=== PATIENT | male | born 1970 | race Caucasian/White ===

== ENCOUNTER 2023-01-15 07:14 | Outpatient (CLI) | payer MEDICAID ==
[2023-01-15] MEDS ORDERED: DIATR MEGLU/DIATRIZOATE SODIUM 120 ML BOTTLE ONE (08:44)
[2023-01-15 08:48] LABS: CREATININE 0.9 mg/dL (0.6-1.2)
[2023-01-15] MEDS ORDERED: iohexoL-300 100 ML VIAL ONE (10:41)
--- NOTE | 2023-01-15 11:38 | Ultrasound Report ---
PROCEDURE: Abdomen Complete INDICATIONS: LEFT LOWER QUAD ABD PAIN TECHNIQUE: Real-time scanning was performed of the abdominal and retroperitoneal organs, with image documentatio n. COMPARISON: None. FINDINGS: Liver: Increased liver echogenicity, commonly mild hepatic steatosis. Gallbladder: Gallbladder fold. No cholelithiasis. Biliary ducts: Intrahepatic bile ducts are non-dilated. Extrahepatic bile duct caliber measures 3.5 mm. Normal is 6-7 mm or less in diameter, or 10 mm or less post-cholecystectomy. Pancreas: Visualized portions of the pancreas are sonographically normal. Spleen: Spleen is normal in size and homogeneous in echotexture. Kidneys: Kidneys are normal in size and echotexture. Right kidney measures 10.4 cm long; left kidne y measures 9.9 cm long. No hydronephrosis or nephrolithiasis. No solid masses. No complex renal cys tic lesions which require follow-up. Aorta: Visualized aorta is normal in caliber at less than 3 cm. Iliacs: Proximal common iliac arteries are normal in caliber at less than 2.5 cm. IVC: Intrahepatic inferior vena cava is patent. Miscellaneous: No free abdominal fluid. IMPRESSION: No findings to explain the patient's left lower quadrant abdominal pain. Normal kidney and spleen. Reviewed by: Juan David Portillo on 01/15/2023 11:37 AM PDT Approved by: Juan David Portillo on 01/15/2023 11:37 AM PDT Station ID: [id number]
[2023-01-15] MEDS ORDERED: iohexoL-300 100 ML VIAL IVP ONE (17:00)
[2023-01-15] MEDS ORDERED: DIATRIZOATE MEGLU/DIATRIZO SOD 30 ML BOTTLE PO ONE (17:00)
--- NOTE | 2023-01-15 22:55 | CT Report ---
PROCEDURE: ABDOMEN/PELVIS W INDICATIONS: LEFT LOWER QUAD ABD PAIN CONTRAST: 100ml Omnipaque 300 TECHNIQUE: After the administration of weight appropriate dose of intravenous contrast, 5 mm thick sections acqu ired from the diaphragms to the symphysis. 5 mm thick coronal and sagittal reformats were acquired. For radiation dose reduction, the following was used: automated exposure control, adjustment of mA and/or kV according to patient size. COMPARISON: None FINDINGS: Image quality: Excellent. Lung bases and heart: Minimal pleural thickening of the bilateral lung bases. Respiratory motion spencer fact. Small hiatal hernia. Heart size is normal. Minimal atherosclerotic calcifications of the [place] ry arteries. Liver: Hepatic steatosis. Gallbladder and biliary tree: No radiopaque stones or wall thickening. No biliary dilation. Spleen: No splenomegaly. Pancreas: No pancreatic ductal dilation. Adrenals: No adrenal nodule. Kidneys and ureters: No hydronephrosis. No renal cystic lesion which requires follow up. No solid mas s. Bilateral ureters are normal in course and caliber. No perinephric or periureteral stranding. Bowel and peritoneum: No bowel distension. No pathologic free fluid. Diverticulosis without evidence of diverticulitis. Normal appendix. Lymph nodes: No central or retroperitoneal adenopathy. Vessels: No infrarenal aortic aneurysm. PELVIS Reproductive organs: Mild prostatomegaly. Bladder: No abnormal wall thickening, accounting for underdistension. Pelvic lymph nodes: No pelvic adenopathy by size criteria. Bones: No aggressive osseous abnormality. No acute compression fractures. Other: No significant ventral or inguinal hernia. IMPRESSION: CT abdomen and pelvis without acute abnormalities to explain patient's symptoms. Colonic diverticulosis without acute diverticulitis. Normal appendix. Mild diffuse hepatic steatosis. Mild prostatomegaly. Reviewed by: Khurram Triplett MD on 01/15/2023 10:53 PM PDT Approved by: Khurram Triplett MD on 01/15/2023 10:53 PM PDT Station ID: [id number]
== END 2023-01-15 07:15 | disposition home or self-care (01) ==
LOC: DI 07:14
PROVIDERS: ATTEND Internal Medicine
DX: R10.32 Left lower quadrant pain (principal); Z87.19 Personal history of other diseases of the digestive system; K57.30 Diverticulosis of large intestine without perforation or abscess without bleeding; K76.0 Fatty (change of) liver, not elsewhere classified; N40.0 Benign prostatic hyperplasia without lower urinary tract symptoms
CPT/HCPCS: 36415; 74177; 76700; 82565; Q9963; Q9967

== ENCOUNTER 2023-07-04 11:27 | Outpatient (CLI) | payer MEDICAID ==
[2023-07-04 16:51] LABS: ALBUMIN 4.5 g/dL (3.2-5.5); ALBUMIN/GLOBULIN RATIO 1.7 (1.0-2.2); BILIRUBIN,TOTAL 0.3 mg/dL (0.2-1.0); CALCIUM 9.5 mg/dL (8.5-10.3); CREATININE 0.8 mg/dL (0.6-1.3); POTASSIUM 4.4 mmol/L (3.5-4.5); TOTAL PROTEIN 7.1 g/dL (6.4-8.9)
== END 2023-07-04 11:28 | disposition home or self-care (01) ==
LOC: LAB.S 11:27
PROVIDERS: ATTEND Internal Medicine
DX: I10 Essential (primary) hypertension (principal)
CPT/HCPCS: 36415; 80053

== ENCOUNTER 2023-07-08 12:11 | Outpatient (CLI) | payer MEDICAID ==
--- NOTE | 2023-07-08 19:14 | XRAY Report ---
PROCEDURE: Knee 3 View LT INDICATIONS: ACUTE LEFT KNEE PAIN TECHNIQUE: 3 views of the knee(s) were acquired. COMPARISON: None. FINDINGS: Bones: No fractures or dislocations. Osteophytic lipping at the patella. No suspicious bony lesions . Soft tissues: No significant knee joint effusion. No suspicious soft tissue calcifications or masses . IMPRESSION: No acute bony abnormality. Mild degenerative changes at the patellofemoral compartment. Reviewed by: Doug Villagomez MD on 07/08/2023 7:13 PM PST Approved by: Doug Villagomez MD on 07/08/2023 7:13 PM PST Station ID: [id number]
== END 2023-07-08 23:59 | disposition home or self-care (01) ==
LOC: DI.S 12:11
PROVIDERS: ATTEND Physician Assistant
DX: M17.12 Unilateral primary osteoarthritis, left knee (principal)